=== PATIENT | female | born 1970 | race Two or more races ===

== ENCOUNTER → 2024-07-01 | Outpatient (CLI) | payer BC, MEDICAID, SELFPAY ==
--- NOTE | 2024-07-01 10:00 | XR_ITS ---
Examination: Screening digital mammography, bilateral Computer aided detection 3-D breast Tomosynthesis, bilateral Date and time of exam: July 01, 2024 at 0959 hours Compared to mammograms dating to February 06, 2017 Indication: Screening Technique: Nonmagnified MLO, CC views of the breasts to been obtained, reconstructed from 3-D Tomosynthesis images. R2 computer aided detection program utilized for evaluation of suspicious masses and/or abnormal calcifications. 3-D Tomosynthesis images obtained. Findings: The breasts are heterogeneously dense, which may obscure small masses 10 mm nodule 12:00 position left breast partially indistinct margins Impression: BI-RADS Category 0: Incomplete: Need additional imaging evaluation 10 mm nodule 12:00 position left breast, recommend follow-up spot tomographic views of this nodule as well as left breast sonography to complete the workup
== END | disposition home or self-care (01) ==
PROVIDERS: PCP Physician Assistant; Referring Provider Physician Assistant; Visit Provider Physician Assistant
DX: Z12.31 Encounter for screening mammogram for malignant neoplasm of breast (principal); N63.25 Unspecified lump in the left breast, overlapping quadrants; R92.8 Other abnormal and inconclusive findings on diagnostic imaging of breast
CPT/HCPCS: 77063; 77067

== ENCOUNTER → 2024-12-16 | Outpatient (CLI) | payer MEDICAID, SELFPAY ==
--- NOTE | 2024-12-16 | XR_ITS ---
Examination: Diagnostic digital mammography, unilateral, left Computer aided detection 3-D breast Tomosynthesis, unilateral Date and time of exam: December 16, 2024 1150 hours INDICATIONS: Mammogram July 01, 2024 10 mm nodule Position left breast Technique: Nonmagnified MLO, CC views of the left breast have been obtained, reconstructed from 3-D Tomosynthesis images. R2 computer aided detection program utilized for evaluation of suspicious masses and/or abnormal calcifications. 3-D Tomosynthesis images obtained. Findings: The breast is heterogeneously dense, which may obscure small masses No suspicious nodule is confirmed on the spot compression views Impression: BI-RADS category 2: Benign findings Recommend yearly follow-up mammography
--- NOTE | 2024-12-16 | XR_ITS ---
Examination: Breast ultrasound, unilateral, left complete Date and time of exam: December 16, 2024 1140 hours INDICATIONS: Mammogram July 01, 2024 10 mm nodule 12:00 position left breast partially indistinct margins Technique: Real-time ovalle scale ultrasonographic imaging performed left breast including all 4 quadrants as well as nipple retroareolar and axillary region. Findings: No cystic or solid mass IMPRESSION: BI-RADS Category 1: Negative study
== END | disposition home or self-care (01) ==
PROVIDERS: PCP Nurse Practitioner Family; Referring Provider Nurse Practitioner Family; Visit Provider Nurse Practitioner Family
DX: N63.20 Unspecified lump in the left breast, unspecified quadrant (principal); R92.322 Mammographic fibroglandular density, left breast
CPT/HCPCS: 76641; 77061; 77065; G0279